=== PATIENT | male | born 1995 | race Caucasian/White ===

== ENCOUNTER 2017-10-23 13:33 | Observation (INO) | payer OTHER ==
--- NOTE | 2017-10-23 13:58 | EDPHY ---
H & P Stated Complaint: Abd pain since this morning; n/v Time Seen by Provider: 10/23/17 13:58 - Personal History Current Tetanus Diphtheria and Acellular Pertussis (TDAP): Yes - Medical/Surgical History Other PMH: mono dx 09/2017 - Social History Smoking Status: Never smoked Constitutional: Initial Vital Signs Temperature (C) 36.7 C 10/23/17 13:43 Heart Rate 72 10/23/17 13:43 Respiratory Rate 16 10/23/17 13:43 Blood Pressure 140/65 H 10/23/17 13:43 O2 Sat (%) 98 10/23/17 13:43 O2 Delivery Mode Room Air Allergies/Adverse Reactions: No Known Allergies Allergy (Unverified 10/23/17 13:45) Home Medications: Medication Instructions Recorded NK [No Known Home Meds] 10/23/17 Medical Decision Making ED Course/Re-evaluation: CHIEF COMPLAINT: Abdominal pain HISTORY OF PRESENT ILLNESS: The patient is a 22 y/o male arriving with his mother complaining of abdominal pain, one episode of vomiting, and nausea that woke him from sleep at 07:00 this morning, about 7 hours ago. He reports he tested positive for mono 3 weeks ago and was put on an antibiotic and prednisone and has had no recurrent symptoms. He has pain located primarily along his lower abdomen. He denies fever, diarrhea , urinary symptoms, recent trauma. No abdominal surgeries. REVIEW OF SYSTEMS: A comprehensive 10 system review of systems is otherwise negative aside from elements mentioned in the history of present illness and medical decision making. PHYSICAL EXAM: HR, BP, O2 Sat, RR. Temp noted General Appearance: Alert, well hydrated, appropriate, and non-toxic appearing. Head: Atraumatic without scalp tenderness or obvious injury Eyes: Pupils equal, round, reactive to light and accommodation, EOMI, no trauma , no injection. Nose: Atraumatic, no rhinorrhea, clear. Throat: There is no erythema or exudates, no lesions, normal tonsils, mucus membranes moist. Neck: Supple, nontender, no lymphadenopathy. Respiratory: No retractions, no distress, no wheezes, and no accessory muscle use. Lungs are clear to auscultation bilaterally. Cardiovascular: Regular rate and rhythm, no murmurs, rubs, or gallops. Good capillary refill all extremities. Gastrointestinal: Abdomen is soft, RLQ tenderness, non-distended, no masses, no rebound, no guarding, no peritoneal signs. Musculoskeletal: Normal active ROM of all extremities, atraumatic. Neurological: Alert, appropriate, and interactive. The patient has non-focal cranial nerves, motor, sensory, and cerebellar exam. Skin: No rashes, good turgor, no nodules on palpation. Past medical history: [place] diagnosis 09/2017 Past surgical history: Denies Family history: Noncontributory Social history: Parents at bedside. Plays hockey. DIFFERENTIAL DIAGNOSIS: The differential diagnosis for the patient's abdominal pain included but was not limited to appendicitis, cholecystitis, hernias, testicular torsion, gastritis, and urinary tract infection. MEDICAL DECISION MAKING: This is a normally healthy 22 y/o male who presents with a 7-hour history of abdominal pain that woke him from sleep this morning. Pain is worst in his RLQ and associated with nausea and one episode of vomiting. He has RLQ tenderness on exam. Plan for IV, labs, UA, abdominal CT, and symptomatic management. 1L IV NS, 30mg IV Toradol, and 4mg IV Zofran ordered. 1500: Patient care signed out to Dr. Miramontes at shift change pending CT results. - Data Points Laboratory Results: Laboratory Results 10/23/17 14:12 10/23/17 14:12 10/23/17 10/23/17 10/23/17 14:19 14:12 14:12 WBC 8.77 10^3/uL 10^3/uL (3.80-9.50) RBC 4.88 10^6/uL 10^6/uL (4.40-6.38) Hgb 16.2 g/dL g/dL (13.7-17.5) POC Hgb 16.7 gm/dL gm/dL (13.7-17.5) Hct 46.5 % % (40.0-51.0) POC Hct 49 % % (40-51) MCV 95.3 fL fL (81.5-99.8) MCH 33.2 pg pg (27.9-34.1) MCHC 34.8 g/dL g/dL (32.4-36.7) RDW 12.0 % % (11.5-15.2) Plt Count 137 10^3/uL L 10^3/uL (150-400) MPV 10.6 fL fL (8.7-11.7) Neut % (Auto) 82.0 % H % (39.3-74.2) Lymph % (Auto) 9.8 % L % (15.0-45.0) [place] % (Auto) 6.7 % % (4.5-13.0) Eos % (Auto) 0.8 % % (0.6-7.6) Baso % (Auto) 0.2 % L % (0.3-1.7) Nucleat RBC Rel Count 0.0 % % (0.0-0.2) Absolute Neuts (auto) 7.19 10^3/uL H 10^3/uL (1.70-6.50) Absolute Lymphs (auto) 0.86 10^3/uL L 10^3/uL (1.00-3.00) Absolute Monos (auto) 0.59 10^3/uL 10^3/uL (0.30-0.80) Absolute Eos (auto) 0.07 10^3/uL 10^3/uL (0.03-0.40) Absolute Basos (auto) 0.02 10^3/uL 10^3/uL (0.02-0.10) Absolute Nucleated RBC 0.00 10^3/uL 10^3/uL (0-0.01) Immature Gran % 0.5 % % (0.0-1.1) Immature Gran # 0.04 10^3/uL 10^3/uL (0.00-0.10) POC Sodium 140 mEq/L mEq/L (135-145) Sodium 139 mEq/L mEq/L (135-145) POC Potassium 3.7 mEq/L mEq/L (3.3-5.0) Potassium 4.0 mEq/L mEq/L (3.3-5.0) POC Chloride 100 mEq/L mEq/L (97-110) Chloride 100 mEq/L mEq/L (97-110) Carbon Dioxide 28 mEq/l mEq/l (22-31) Anion Gap 11 mEq/L mEq/L (8-16) POC BUN 11 mg/dL mg/dL (7-23) BUN 12 mg/dL mg/dL (7-23) Creatinine 0.9 mg/dL mg/dL (0.7-1.3) POC Creatinine 1.0 mg/dL mg/dL (0.7-1.3) Estimated GFR > 60 Glucose 103 mg/dL H mg/dL (70-100) POC Glucose 104 mg/dL H mg/dL (70-100) Calcium 9.9 mg/dL mg/dL (8.5-10.4) Total Bilirubin 1.4 mg/dL mg/dL (0.1-1.4) Conjugated Bilirubin 0.3 mg/dL mg/dL (0.0-0.5) Unconjugated Bilirubin 1.1 mg/dL mg/dL (0.0-1.1) AST 29 IU/L IU/L (17-59) ALT 35 IU/L IU/L (21-72) Alkaline Phosphatase 95 IU/L IU/L (38-126) Total Protein 7.7 g/dL g/dL (6.3-8.2) Albumin 4.5 g/dL g/dL (3.5-5.0) Lipase 95 IU/L IU/L (23-300) Medications Given: Discontinued Medications Sodium Chloride (Ns) 1,000 mls @ 0 mls/hr IV EDNOW ONE; Wide Open PRN Reason: Protocol Stop: 10/23/17 14:06 Last Admin: 10/23/17 14:16 Dose: 1,000 mls Ketorolac Tromethamine (Toradol) 30 mg IVP EDNOW ONE Stop: 10/23/17 14:06 Last Admin: 10/23/17 14:17 Dose: 30 mg Ondansetron HCl (Zofran) 4 mg IVP EDNOW ONE Stop: 10/23/17 14:06 Last Admin: 10/23/17 14:19 Dose: 4 mg Point of Care Test Results: Chemistry 10/23/17 14:19 POC Sodium 140 mEq/L mEq/L (135-145) POC Potassium 3.7 mEq/L mEq/L (3.3-5.0) POC Chloride 100 mEq/L mEq/L (97-110) POC BUN 11 mg/dL mg/dL (7-23) POC Creatinine 1.0 mg/dL mg/dL (0.7-1.3) POC Glucose 104 mg/dL H mg/dL (70-100) ISTAT H&H 10/23/17 14:19 POC Hgb 16.7 gm/dL gm/dL (13.7-17.5) POC Hct 49 % % (40-51) Departure - Departure Referrals: DR MARLO [Other] - As per Instructions Report Scribed for: Deejay Aburto Report Scribed by: Nova Mahajan Date of Report: 10/23/17 Time of Report: 14:07
[2017-10-23] MEDS ORDERED: ONDANSETRON 4 MG/2 ML VIAL IVP ONE (14:05)
[2017-10-23] MEDS ORDERED: KETOROLAC 30 MG/1 ML SDV IVP ONE (14:05)
[2017-10-23] MEDS: NS 1,000 ML IV ONE ×2 (14:16→16:14)
[2017-10-23] MEDS ORDERED: IOPAMIDOL (ISOVUE-300) 100 ML BTL ONE (14:26)
[2017-10-23 14:31] LABS: PLATELET COUNT 137 10^3/uL (150-400)
[2017-10-23] MEDS ORDERED: ONDANSETRON 4 MG/2 ML VIAL IVP PRN ×2 (16:03→20:03)
[2017-10-23] MEDS ORDERED: HYDROmorphONE/DILAUDID 1 MG/ML INJ IVP PRN (16:03)
[2017-10-23] MEDS ORDERED: NS 1,000 ML IV ONE (16:14)
[2017-10-23] MEDS ORDERED: LR 1,000 ML IV SCH (16:30)
[2017-10-23] MEDS: ACETAMINOPHEN 500 MG TAB PO SCH (18:30)
[2017-10-23] MEDS ORDERED: MIDAZOLAM 2 MG/2 ML VIAL IVP ONE (18:31)
--- NOTE | 2017-10-23 18:31 | PDANEPAE ---
ANE History of Present Illness Acute appendicitis, here for lap therese EVELIO Past Medical History - Cardiovascular History Hx Hypertension: No - Pulmonary History Hx Oxygen in Use at Home: No Hx Sleep Apnea: No - Endocrine History Hx Diabetes: No ANE Review of Systems Review of Systems: - Exercise capacity Exercise capacity: >=4 METS ANE Patient History - Allergies Allergies/Adverse Reactions: No Known Allergies Allergy (Verified 10/23/17 16:15) - Home Medications Home Medications: Ibuprofen [Motrin (*)] 200 mg PO Q6H PRN 10/23/17 [Last Taken 10/23/17] - NPO status NPO Since - Liquids (Date): 10/23/17 NPO Since - Liquids (Time): 11:00 NPO Since - Solids (Date): 10/22/17 NPO Since - Solids (Time): 23:00 - Anes Hx Anes Hx: no prior problems - Smoking Hx Smoking Status: Never smoked - Alcohol Use Alcohol Use: Heavy - Family Anes Hx Family Anes Hx: none ANE Labs/Vital Signs - Labs Result Diagrams: 10/23/17 14:12 10/23/17 14:12 - Vital Signs Blood Pressure: 122/70 Heart Rate: 46 Respiratory Rate: 14 O2 Sat (%): 97 Height: 182.88 cm Weight: 78.018 kg ANE Physical Exam - Airway Neck exam: FROM Mallampati Score: Class 2 Mouth exam: normal dental/mouth exam - Pulmonary Pulmonary: no respiratory distress, clear to auscultation - Cardiovascular Cardiovascular: regular rate and rhythym, no murmur, rub, or gallop - ASA Status ASA Status: I ANE Anesthesia Plan Anesthesia Plan: general endotracheal anesthesia
[2017-10-23] MEDS ORDERED: ceFAZolin 1 GM/5 ML SYR ONE (18:34)
[2017-10-23] MEDS ORDERED: HEPARIN 5,000 UNIT/0.5 ML INJ ONE (18:34)
[2017-10-23] MEDS ORDERED: fentaNYL 100 MCG/2 ML INJ ONE ×3 (18:45→20:15)
[2017-10-23] MEDS ORDERED: PROPOFOL 200 MG/20 ML VIAL ONE ×2 (18:45→19:41)
[2017-10-23] MEDS ORDERED: MIDAZOLAM 2 MG/2 ML VIAL ONE (18:51)
--- NOTE | 2017-10-23 19:19 | GHP ---
DATE OF ADMISSION: 10/23/2017 ADMITTING DIAGNOSIS: Acute appendicitis. 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 Pain woke him from sleep at 7 a.m. He describes it as generalized aching. He did have a half a cup of coffee for breakfast but not the usual full breakfast. By 10 in the morning, the epigastric pain had become more periumbilical. He tried to induce vomiting twice. It was successful, but it did not diminish his pain. He had moved his bowels at 8:30 with no change in his pain. He came to the emergency department. A CBC was performed, which was white count of 8.7 with 82% neutrophils. The CT showed appendicitis with an appendicolith. I was asked to come see the patient. He has not had a history of recent upper respiratory tract infection or diarrhea. He has had mono diagnosed 4 weeks ago. He has not had any travel or antibiotic use in the past 6 months. There are no prior similar abdominal symptoms. He has had no abdominal surgery. There is no history of inflammatory bowel disease. SOCIAL HISTORY: He does not smoke. He drinks 3 nights a week, 7 to 8 drinks a night. There are no known drug allergies. MEDICATIONS: He does not take any. MEDICAL/SURGICAL HISTORY: Only surgery has been myringotomy tubes. He has no history of rheumatic fever, tuberculosis, hepatitis, or transfusions. REVIEW OF SYSTEMS: He wears lenses for visual corrections; sometimes is able to pass the [employer] visual exam without them. He has had 2 concussions in the past. No limits on his activities. No history of steroid use. PHYSICAL EXAMINATION: GENERAL: He is awake and alert. He has received Toradol and Zosyn. HEAD: His skull is normocephalic and atraumatic. NEUROLOGICALLY: He is intact without focal lateralizing neurologic findings. He is oriented person, place, and time. NECK: Nontender. LYMPHATICS: No cervical, supraclavicular, axillary, or inguinal lymphadenopathy. The thyroid is not enlarged. BACK: Unremarkable. LUNGS: Clear to auscultation. CARDIAC EXAM: Shows S1, S2 to be normal, split of S2, without murmurs, rubs, or gallops. ABDOMEN: Tender with cough over McBurney point. It is 7-1/2 out of 10. To palpation, his left upper quadrant is 1 on a scale of 1-10, left mid abdomen is 1, left lower quadrant is 2, epigastrium is 1, periumbilical area is 2, suprapubic area is 2, right upper quadrant is 3, right mid abdomen is 6, right lower quadrant is 9. Psoas sign is positive. Obturator sign is negative. LABORATORIES: Reveal, as mentioned above, a white count of 8.7 with 82% neutrophils. His hematocrit is 46, his platelet count is 137, BUN is 12, creatinine is 0.9. VITAL SIGNS: His blood pressure is 125/80, at a rate of 47. His temperature is 36.7. His room air sat was 97. He weighs 78 kg. IMAGING: The CT scan shows an 18 mm appendix with appendicolith. PLAN: I will plan laparoscopic appendectomy. /[id number]/MODL MTDD
[2017-10-23] MEDS ORDERED: DEXAMETHASONE 4 MG/ML VIAL ONE (19:27)
[2017-10-23] MEDS ORDERED: ONDANSETRON 4 MG/2 ML VIAL ONE (19:28)
[2017-10-23] MEDS ORDERED: ROCURONIUM 100 MG/10 ML VIAL ONE (19:29)
[2017-10-23] MEDS ORDERED: LIDOCAINE 2% 100 MG/5 ML SYR ONE (19:29)
[2017-10-23] MEDS ORDERED: KETOROLAC 30 MG/1 ML SDV ONE (19:40)
[2017-10-23] MEDS ORDERED: SUGAMMADEX SODIUM 200 MG/2 ML VIAL IVP ONE (19:41)
[2017-10-23] MEDS ORDERED: KETOROLAC 30 MG/1 ML SDV IVP SCH (20:00)
[2017-10-23] MEDS ORDERED: HYDROCODONE/APAP 5/325 TAB PO PRN (20:03)
[2017-10-23] MEDS ORDERED: oxyCODONE IR 5 MG TAB PO PRN (20:03)
[2017-10-23] MEDS ORDERED: ACETAMINOPHEN 500 MG TAB PO PRN (20:03)
[2017-10-23] MEDS ORDERED: PROMETHAZINE HCL 25 MG/ML INJ IVP PRN (20:03)
[2017-10-23] MEDS ORDERED: fentaNYL 100 MCG/2 ML INJ IVP PRN (20:03)
[2017-10-23] MEDS ORDERED: NALOXONE HCL 0.4 MG/ML INJ IVP PRN (20:03)
--- NOTE | 2017-10-23 20:04 | POSTANESTH ---
Post Anesthetic Evaluation Cardiovascular Status: Normal, Stable, Similar to Pre-Op Cond Respiratory Status: Normal, Stable, Similar to Pre-op Cond. Level of Consciousness/Mental Status: Can Participate in Eval, Mildly Sleepy, Arousable Pain Control: Adequate, Prn Tx Ordered Nausea/Vomiting Control: Adequate, Prn Tx Ordered Complications Possibly Related to Anesthesia: None Noted
--- NOTE | 2017-10-23 20:12 | POSTOPPROG ---
Post Op Note Date of Operation: 10/23/17 Surgeon: Mata Duenas Anesthesia: GET(General Endotracheal) Pre-op Diagnosis: Acute appendicitis with appendicolith Post-op Diagnosis: Acute appendicitis with appendicolith, small indirect LIH Indication: Acute appendicitis with appendicolith Procedure: Laparoscopic appendectomy Findings: Acute appendicitis with appendicolith, small indirect LIH Inf/Abcess present in the surg proc area at time of surgery?: No EBL: Minimal Total fluids administered: 500 Complications: none Specimen(s): appendix
--- NOTE | 2017-10-23 21:09 | GOP ---
DATE OF OPERATION: 10/23/2017 SURGEON: Mata Duenas MD ANESTHESIA: General endotracheal. PREOPERATIVE DIAGNOSIS: Acute appendicitis with appendicolith, with recent history of mononucleosis. POSTOPERATIVE DIAGNOSIS: Acute, unruptured appendicitis with appendicolith and additional finding of a small left indirect inguinal hernia. PROCEDURE PERFORMED: Laparoscopic appendectomy. FINDINGS: Acute, unruptured appendicitis with appendicolith and additional finding of a small left indirect inguinal hernia. ESTIMATED BLOOD LOSS: Minimal. INDICATIONS: Acute appendicitis with appendicolith, with recent history of mononucleosis. DESCRIPTION OF PROCEDURE: The patient is placed on the operating table in supine position. After induction of adequate general endotracheal anesthesia, his abdomen is carefully clipped, prepped, and draped. A surgical time-out is carried out and agreed to by all members of the operative team. A curvilinear incision is placed in the inferior umbilical fold. The skin is sharply incised. The dissection is continued with Bovie electrocautery and blunt dissection. The anterior rectus sheath is elevated on either side of the midline with Allis clamps. The fascia is entered in the midline. A pursestring of #0 PDS is placed. The peritoneum is entered. An 11/12 mm disposable Kieran trocar is positioned and intra-abdominal insufflation is carried out to 15 mmHg. A 5 mm oblique left lower quadrant incision and a 5 mm transverse suprapubic incision were also made for placement of additional ports under direct vision. On inspection of the abdominal cavity, a very tiny left indirect inguinal hernia is noted. There is only straw-colored serous fluid in the pelvis. The appendix is carefully mobilized; it is folded retrocecally. Using a Harmonic Scalpel it is carefully taken down. Once it has been freed from its attachments to the cecum it is carefully elevated and the appendiceal base is cleared on the cecum. Two applications of a 35 mm Endo-EVA stapler were used. The specimen is placed in an EndoCatch bag and delivered. Hemostasis is excellent. Pneumoperitoneum is re-established. The small bowel is run for a distance of 3 feet. There is no mesenteric adenitis identified. There is no Meckel diverticulum. Copious irrigation is carried out with heparin and Ancef- containing irrigant. Ports were removed under direct vision. An inverted simple suture is placed at the midpoint of the infraumbilical incision in the linea alba. This is tied and the pursestring is then tied. This resulted in excellent closure. The subcutaneous tissue is well irrigated and hemostasis is excellent. All 3 incisions are closed with inverted simple sutures of #4-0 Vicryl. Mastisol and Steri-Strips are placed. Band-Aids are positioned. The patient is transferred to Recovery in stable and satisfactory condition. FLUIDS: Approximately 750 cc. URINE: Not obtained, so output is not available. /[id number]/MODL MTDD
[2017-10-24] MEDS: ACETAMINOPHEN 500 MG TAB PO SCH ×2 (00:46→07:12)
[2017-10-24] MEDS: KETOROLAC 30 MG/1 ML SDV IVP SCH ×2 (00:47→07:11)
[2017-10-24 07:40] VITALS: BP 116/63
--- NOTE | 2017-10-24 10:28 | ASMTCASEMG ---
Living Arrangements What is your living Answers: Alone arrangement? Who do you live with? Type Of Residence What kind of residence do Answers: House you live in? Discharge Plan Comments Coordination Status Comments Notes: Pt is a 22 y/o man admitted for acute appendicitis. Dr. Duenas performed a laparoscopic appendectomy. Pt will most likely d/c independent when medically stable. No therapies ordered at this time. CM available for changes. Plan: Independent Date Signed: 10/24/2017 10:28 AM Electronically Signed By:JUANITA Barrera
--- NOTE | 2017-10-24 10:59 | SOAPPROG ---
SOAP Progress Note Assessment/Plan: 10/24/17 10:56 POD#1 Assessment: Doing well!, VSS, Comfortable, eating a regular diet, passing flatus, incisions clean and dry Plan: Discharge Subjective: No complaints Objective: Vital Signs Temp Pulse Resp BP Pulse Ox 36.8 C 51 L 16 116/63 95 10/24/17 07:27 10/24/17 07:39 10/24/17 07:39 10/24/17 07:39 10/24/17 07:39 10/23/17 10/24/17 10/25/17 05:59 05:59 05:59 Intake Total 2100 Output Total 20 Balance 2079 - Time Spent With Patient Time Spent With Patient: 15 Physical Exam - Physical Exam General Appearance: WD/WN, alert, no apparent distress Respiratory: chest non-tender, lungs clear, normal breath sounds Cardiac/Chest: regular rate, rhythm Abdomen: normal bowel sounds, non-tender, soft, other (incisions clean and dry) Male Genitalia: deferred Rectal: deferred Back: Normal inspection Skin: normal color, warm/dry Neuro/Psych: no motor/sensory deficits, alert, normal mood/affect, oriented x 3 ICD10 Worksheet Patient Problems: Problems Problem Status Onset Appendicitis Acute - ICD10 Problem Qualifiers (1) Appendicitis
--- NOTE | 2017-10-24 11:22 | GDS ---
DISCHARGE DIAGNOSIS: Acute appendicitis. SECONDARY DIAGNOSIS: Small left inguinal hernia. PROCEDURE PERFORMED: Laparoscopic appendectomy. DISPOSITION: He is to return to the [facility]. CONDITION: Good. DIET: Unrestricted, although I recommend that he avoid constipating foods such as bananas, rice, juan diego lesauce and cheese. The texture is unrestricted. MEDICATIONS: Limited to pain control. He will use Tylenol 1000 mg every 8 hours for about the next 10 days. He will use Toradol 10 mg every 6 hours for the next 5 days. He will use Dilaudid 2-4 mg a s needed for severe pain, but should go immediately to the [facility] if he has increasing pain. ACTIVITY: For the next 3 weeks, he is to lift less than 10 pounds. He is to shower only. He is to keep his Steri-Strips in place. I have also suggested he take a multivitamin with zinc, copper and C daily. For the next 14 days, he is watch for signs of infection. Superficial would be redness, warmth, tend erness and swelling. Deep would be fevers, chills, loss of appetite, abdominal pain and malaise. FOLLOWUP: He will follow up with the [facility] physicians. /[id number]/MODL
== END 2017-10-24 11:38 | disposition home or self-care (01) ==
LOC: F3E 17:13
PROVIDERS: ADMIT Surgery; ATTEND Surgery
PROC: 0DTJ4ZZ Resection of Appendix, Percutaneous Endoscopic Approach (ICD-10-PCS; principal; 2017-10-23 19:15)
DX: K35.80 Unspecified acute appendicitis (principal); K40.90 Unilateral inguinal hernia, without obstruction or gangrene, not specified as recurrent; Z87.820 Personal history of traumatic brain injury
CPT/HCPCS: 44970; 74177; G0378; 82435-PO; 82565-PO; 82947-PO; 84132-PO; 84295-PO; 84520-PO; 85014-PO; 96365; J0696; J1100; J1170; J1644; J1885; J2001; J2250; J2405; J2704; J3010; Q9967